=== PATIENT | male | born 1990 | race Caucasian/White ===

== ENCOUNTER 2017-07-14 13:11 | Emergency (ER) | payer OTHER ==
[2017-07-14] MEDS ORDERED: Lidocaine 2% 10 ML* VIAL INJ ONE (14:08)
[2017-07-14] MEDS ORDERED: Lidocaine 2% PF * 5 ML VIAL ONE (14:16)
[2017-07-14 15:11] VITALS: BP 128/81
--- NOTE | 2017-07-14 15:48 | ED ---
Elvia Cook Alfonso, scribed for Bill Payne MD on 07/14/17 at 1431 . Adult Trauma - HPI Summary HPI Summary: This patient is a 27 year old M presenting to [facility] accompanied by two female friends with a chief complaint of a fall at noon today. He was on a hike when he hit my head on the back of a rock. The patient rates the pain 4/10 in severity. Symptoms aggravated and alleviated by nothing. Patient reports small scalp laceration, possible LOC (brief), dull headache, and UE and face tingling (resolved). Patient denies N/V, dizziness, neck pain, CP, SOB, bowel symptoms, and urinary symptoms. He denies any PMHx. - History of Current Complaint Chief Complaint: EDHeadInjury Stated Complaint: FALL/HEAD INJURY Time Seen by Provider: 07/14/17 13:44 Hx Obtained From: Patient Mechanism of Injury: Fall Ambulatory at the Scene: Yes Loss of Consciousness: brief (seconds) - Possible Onset/Duration: Started Minutes Ago - 1200 today, Traumatic, Still Present Onset of Pain: Prior to Arrival Onset Severity: Mild Current Severity: Mild Pain Intensity: 4 Pain Scale Used: 0-10 Numeric Location: Head - scalp Aggravating Factor(s): Nothing Alleviating Factor(s): Nothing Associated Signs & Symptoms: Positive: Other: - Patient reports small scalp laceration, possible LOC (brief), dull headache, and UE and face tingling ( resolved). Patient denies N/V, dizziness, neck pain, CP, SOB, bowel symptoms, and urinary symptoms. PMH/Surg Hx/FS Hx/Imm Hx Sensory History: Denies: Hx Deafness Opthamlomology History: Denies: Hx Legally Blind Infectious Disease History: No Infectious Disease History: Denies: Traveled Outside the [place] in Last 30 Days - Family History Known Family History: Negative: Seizure Disorder - Social History Alcohol Use: Weekly Substance Use Type: Reports: None Smoking Status (MU): Never Smoked Tobacco Review of Systems Negative: Chest Pain Negative: Shortness Of Breath Positive: Other - Negative bowel symptoms.. Negative: Vomiting, Nausea Positive: no symptoms reported Positive: Other - Positive head trauma; negative neck pain Positive: Other - Positive small scalp laceration. Neurological: Other - Positive possible LOC (brief), dull headache, and UE and face tingling (resolved) All Other Systems Reviewed And Are Negative: Yes Physical Exam Triage Information Reviewed: Yes Vital Signs On Initial Exam: Initial Vitals Temp Pulse Resp BP Pulse Ox 98.5 F 78 18 113/78 100 07/14/17 13:15 07/14/17 13:15 07/14/17 13:15 07/14/17 13:15 07/14/17 13:15 Vital Signs Reviewed: Yes Appearance: Positive: Well-Appearing, No Pain Distress Skin: Positive: Warm, Skin Color Reflects Adequate Perfusion, Dry, Other - Two superficial left occipital lacerations #1 is 1.5 cm and #2 is 0.8 cm. Head/Face: Positive: Normal Head/Face Inspection Eyes: Positive: Normal ENT: Positive: Normal ENT inspection Neck: Positive: Supple, Nontender Respiratory/Lung Sounds: Positive: Clear to Auscultation, Breath Sounds Present Cardiovascular: Positive: RRR Abdomen Description: Positive: Nontender, Soft Bowel Sounds: Positive: Present Musculoskeletal: Positive: Normal Neurological: Positive: Normal, Sensory/Motor Intact, Alert, Oriented to Person Place, Time, CN Intact II-III Psychiatric: Positive: Affect/Mood Appropriate - [place] Coma Scale Coma Scale Total: 15 Procedures - Laceration/Wound Repair 1 Location: head - 1.5 cm left occipital laceration Description: Linear - clean Anesthesia: Local, 2.0%, Lido Length, Depth and Shape: 1.5 CM superficial Betadine Prep?: Yes Irrigated w/ Saline (ccs): 0 Laceration/Wound Explored: clean Closure: Single Layer, Slade #__ - 3 Layer Closure?: No Sterile Dressing Applied?: Yes 2 Location: head Description: Linear Anesthesia: Local, 2.0%, Lido Length, Depth and Shape: 8 mm Betadine Prep?: Yes Irrigated w/ Saline (ccs): 0 Laceration/Wound Explored: clean Closure: Single Layer, Lena #__ - 2 Layer Closure?: No Sterile Dressing Applied?: Yes Diagnostics - Vital Signs Vital Signs Temp Pulse Resp BP Pulse Ox 07/14/17 13:39 80 98 07/14/17 13:37 99.6 F 81 16 123/73 98 07/14/17 13:15 98.5 F 78 18 113/78 100 - Laboratory Lab Statement: Any lab studies that have been ordered have been reviewed, and results considered in the medical decision making process. Adult Trauma Course/Dx - Course Course Of Treatment: Mr. Page fell from a standing positon and hit his head on a rock. He was immediately responsive according to his friends. He had some initial tingling in his hands which is gone and his face felt different from normal which was hard to characterize. He had sharp pain in the back of his head where he sustained a couple of small lacerations and a dull generalized ANTUNEZ. No neck pain, focal neurological C/O or visual changes were present. His exam was unremarkable aside from the lacs. He was about three hours post trauma by the time he left here. - Diagnoses Provider Diagnoses: Head injury due to trauma, Occipital scalp laceration Discharge - Discharge Plan Condition: Stable Disposition: HOME Patient Education Materials: Laceration (ED) Referrals: [facility] [Outside] Additional Instructions: Follow up with a PCP in 10 days - 2 weeks to have lena removed. The documentation as recorded by the Elvia valdez Alfonso accurately reflects the service I personally performed and the decisions made by me, Bill Payne MD.
== END 2017-07-14 15:11 | disposition home or self-care (01) ==
LOC: ED 13:11
DX: S09.90XA Unspecified injury of head, initial encounter (principal); W19.XXXA Unspecified fall, initial encounter; Y93.9 Activity, unspecified; Y92.9 Unspecified place or not applicable; S01.01XA Laceration without foreign body of scalp, initial encounter
CPT/HCPCS: 12001; 99282; J2001